=== PATIENT | female | born 1970 | race African-American/Black ===

== ENCOUNTER 2021-07-27 05:59 | Emergency (ER) | payer SELFPAY ==
[~2021-07-27] VITALS: Ht 149.9 cm; Wt 64.0 kg
--- NOTE | 2021-07-27 06:10 | NUR ---
PT BIBSELF FROM HOME C/O DRY PERSISTEN COUGH X10 DAYS, LOWER BACK PAIN, & NAUSEA X10 DAYS. WENT TO URGENT CARE LAST WEEK DX: BRONCHITIS. FINISHED [facility] WEDNESDAY & HAD PRESCRIPTION OF ALBUTERAL INHALER WITH NO RELIEF. PER URGENT CARE, COVID (-) & CXR (-). PT A/OX4. TOLERATING R/A AT 97% WITH NO SOB. CONNECTED PT TO POX AND MONITOR.
--- NOTE | 2021-07-27 06:13 | NUR ---
PT SEEN BY DR. SOURAV JAEGER
--- NOTE | 2021-07-27 06:21 | NUR ---
EMISSIONS INSPECTOR AT PT'S BEDSIDE
--- NOTE | 2021-07-27 06:29 | NUR ---
COVID ANTIGEN AND PCR SWAB COLLECTED, SENT TO LAB
[2021-07-27] MEDS ORDERED: PROM118S PO ×2 (07:14→11:49)
--- NOTE | 2021-07-27 07:21 | NUR ---
Patient discharged to home in stable condition. Written and verbal after care instructions given. Patient verbalizes understanding of instruction.
[2021-07-27 07:22] VITALS: BP 144/73
--- NOTE | 2021-07-27 12:22 | NUR ---
[facility] [phone]
== END 2021-07-27 07:21 | disposition home or self-care (01) ==
LOC: ER 06:10
DX: J20.9 Acute bronchitis, unspecified (principal); Z20.822 Contact with and (suspected) exposure to COVID-19; Z88.0 Allergy status to penicillin
CPT/HCPCS: 71045; 87426; 99284; C9803; U0003